=== PATIENT | female | born 1985 | race Caucasian/White ===

== ENCOUNTER → 2016-10-18 | Outpatient (CLI) | payer BC | LOC: RAD 14:31 | DX: I83.891 Varicose veins of right lower extremity with other complications (principal) ==

== ENCOUNTER → 2019-05-02 | Outpatient (CLI) | payer BC | LOC: LAB 11:43 | DX: J02.9 Acute pharyngitis, unspecified (principal) ==

== ENCOUNTER → 2020-02-27 | Outpatient (CLI) | payer BC | LOC: RAD 11:35 | DX: O22.23 Superficial thrombophlebitis in pregnancy, third trimester (principal); I80.01 Phlebitis and thrombophlebitis of superficial vessels of right lower extremity; Z91.89 Other specified personal risk factors, not elsewhere classified; Z3A.32 32 weeks gestation of pregnancy ==

== ENCOUNTER → 2023-11-21 | Outpatient (CLI) | payer BC | LOC: RAD 09:37 | DX: I80.01 Phlebitis and thrombophlebitis of superficial vessels of right lower extremity (principal); Z86.718 Personal history of other venous thrombosis and embolism ==

== ENCOUNTER → 2023-11-22 | Outpatient (CLI) | payer BC | LOC: RAD 08:00 | DX: D11.0 Benign neoplasm of parotid gland (principal); Z86.718 Personal history of other venous thrombosis and embolism ==